=== PATIENT | male | born 1985 | race African-American/Black ===

== ENCOUNTER 2017-02-18 14:43 | Emergency (ER) | payer OTHER ==
[2017-02-18 15:33] VITALS: BP 151/78
[2017-02-18] MEDS ORDERED: Ibuprofen TAB* 600 MG PO ONE (16:22)
--- NOTE | 2017-02-18 16:31 | UC ---
HPI Febrile Illness - HPI Summary HPI Summary: 31 yo male with the onset of fever and chills yesterday mild BAZAN, mild LBP no URI symptoms no Sore throat no CP/SOB/cough no abd pain no n/v/d no UTI symptoms no rash - History of Current Complaint Chief Complaint: UCGeneralIllness Time Seen by Provider: 02/18/17 16:25 Hx Obtained From: Patient Onset/Duration: Started Days Ago Timing: Constant Temperature: 102 F Initial Severity: Mild Current Severity: Mild Pain Scale Used: 0-10 Numeric Aggravating Factors: Nothing Alleviating Factors: OTC Medicine Associated Signs and Symptoms: Chills, Headache - mild, Myalgia - mild LBP - Risk Factors Pseudomonas Risk Factors: Negative Serious Bacterial Infection Risk Factors: Negative - Allergy/Home Medications Allergies/Adverse Reactions: Allergies Allergy/AdvReac Type Severity Reaction Status Date / Time No Known Allergies Allergy Verified 02/18/17 15:32 Home Medications: Home Medications NK [No Home Medications Reported] 02/18/17 [History Confirmed 02/18/17] PMH/Surg Hx/FS Hx/Imm Hx Previously Healthy: Yes - Surgical History Surgery Procedure, Year, and Place: Right arm fx with metal aly in place 2012; left femur fx Hx Anesthesia Reactions: No Infectious Disease History: No Infectious Disease History: Denies: Traveled Outside the [place] in Last 30 Days - Family History Known Family History: Positive: Hypertension Family History: no family history of cardio-vascular disorders - Social History Alcohol Use: Daily Substance Use Type: Reports: Marijuana Substance Use Comment - Amount & Last Used: daily usage Smoking Status (MU): Former Smoker Type: Cigarettes Amount Used/How Often: 1/2 - 1 ppd Length of Time of Smoking/Using Tobacco: 5 years Review of Systems Constitutional: Fever, Chills Skin: Negative Eyes: Negative ENT: Negative Respiratory: Negative Cardiovascular: Negative Gastrointestinal: Negative Genitourinary: Negative Motor: Negative Neurovascular: Negative Musculoskeletal: Myalgia Neurological: Headache Psychological: Negative All Other Systems Reviewed And Are Negative: Yes Physical Exam Triage Information Reviewed: Yes Appearance: Well-Appearing, No Pain Distress, Well-Nourished Vital Signs: Initial Vital Signs Temp 100.1 F 02/18/17 15:22 Pulse 66 02/18/17 15:22 Resp 14 02/18/17 15:22 BP 151/78 02/18/17 15:22 Pulse Ox 100 06/21/17 15:22 Eyes: Positive: Conjunctiva Clear ENT: Positive: Hearing grossly normal, Pharynx normal, TMs normal. Negative: Nasal congestion, Nasal drainage, Tonsillar swelling, Tonsillar exudate, Trismus , Muffled/hoarse voice Dental: Negative: Abscess @ Neck: Positive: Supple, Nontender, No Lymphadenopathy Respiratory: Positive: Chest non-tender, Lungs clear, Normal breath sounds, No respiratory distress, No accessory muscle use Cardiovascular: Positive: RRR, No Murmur. Negative: Tachycardia, Bradycardia Abdomen Description: Positive: Nontender, No Organomegaly, Soft. Negative: Bruit, CVA Tenderness (R), CVA Tenderness (L), Distended, Guarding, Hepatomegaly , Splenomegaly Bowel Sounds: Positive: Present Musculoskeletal: Positive: ROM Intact, No Edema Neurological: Positive: Alert, Muscle Tone Normal Psychological Exam: Normal Skin Exam: Normal Course/Dx - Diagnoses Clinic Provider Diagnoses: fever of uncertain cause Discharge - Discharge Plan Condition: Stable Disposition: HOME Patient Education Materials: Fever in Adults (ED) Referrals: No Primary Care Phys,NOPCP [Primary Care Provider] - Additional Instructions: rest fluids tylenol or advil recheck for new or worsening symptoms recheck in 48 hours if still feverish
[2017-02-18 19:53] LABS: Hematocrit 44 % (42-52); Hemoglobin 14.6 g/dl (14.0-18.0); Mean Corpuscular HGB Conc 33 g/dl (31-36); Mean Corpuscular Hemoglobin 27 pg (27-31); Mean Corpuscular Volume 82 fL (80-94); Mean Platelet Volume 9 um3 (7.4-10.4); Red Blood Count 5.42 10^6/ul (4.0-5.4); Red Cell Distribution Width 14 % (10.5-15); White Blood Count 11.9 10^3/ul (3.5-10.8)
[2017-02-18 21:19] LABS: Albumin 4.2 g/dL (3.2-5.2); BUN/Creatinine Ratio 7.5 (8-20); Calcium 9.3 mg/dL (8.6-10.3); EGFR African American 103.7 (>60); EGFR Non-African American 80.6 (>60); Globulin 3.4 g/dL (2-4); Potassium 4.3 mmol/L (3.5-5.0); Total Protein 7.6 g/dL (6.4-8.9)
--- NOTE | 2017-02-19 09:57 | UC ---
Progress - Progress Note Progress Note: Call from patient and review of labs. Mild elevation of white count, mildly low serum sodium, mild increase in AST and ALT, consistent with viral illness. Yoni is aware of results --see nursing note.
== END 2017-02-18 17:00 | disposition home or self-care (01) ==
LOC: UCCORT 14:43
DX: R50.9 Fever, unspecified (principal); R51 Headache; M54.5 Low back pain; F12.90 Cannabis use, unspecified, uncomplicated; F17.210 Nicotine dependence, cigarettes, uncomplicated
CPT/HCPCS: 36415; 80053; 81003; 85025; 99212; A9270-GY; G0463